=== PATIENT | male | born 1985 | race Caucasian/White ===

== ENCOUNTER 2019-11-07 00:26 | Emergency (ER) | payer SELFPAY ==
[~2019-11-07] VITALS: Ht 175.3 cm; Wt 61.2 kg
[2019-11-07 00:30] VITALS: BP 117/92
--- NOTE | 2019-11-07 01:42 | NUR ---
PATIENT AMB TO BED 2
--- NOTE | 2019-11-07 01:52 | NUR ---
ASSESSMENT COMPLETED WITH PATIENT LAYING IN BED, BED LOW AND LOCKED WITH SIDE RAIL UP. PATIENT AAO. FAMILY AT BEDSIDE. 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 STATES 6+ EPIDOSDE OF VOMITING AND 6+ DIARRHEA. STATES HE HAS NOT VOMITED OR HAD A BM IN THE LAST 30 MIN. PATIENT STATES EPIGASTRIC PAIN AND TENDERNESS. ABD SOFT. LUNGS CLEAR. NO COUGH OR FEVER REPORTED. NO PMH REPORTED.
[2019-11-07] MEDS ORDERED: ONDANSETRON 4 MG ODT PO STA (04:34)
[2019-11-07] MEDS ORDERED: DICYCLOMINE HCL LIQUID 20 MG, ALUMINUM HYD/MAG/SIMETHICONE 30 ML, LIDOCAINE VISCOUS 2% ... PO STA ×3 (04:34)
[2019-11-07] MEDS ORDERED: ALUMINUM HYD/MAG/SIMETHICONE 30 ML UDC ONE (04:42)
[2019-11-07] MEDS ORDERED: LIDOCAINE VISCOUS 2% 20 ML UDC ONE (04:42)
[2019-11-07] MEDS ORDERED: DICYCLOMINE HCL LIQUID 10 MG/5 ML UDC ONE (04:43)
[2019-11-07 05:50] VITALS: BP 121/89
--- NOTE | 2019-11-07 05:50 | NUR ---
PT DISCHARGED WITH PAPERWORK. EDUCATED PT REGARDING MEDICATIONS AND D/C INSTRUCTIONS. PT VERBALIZED UNDERSTANDING. TOLD PT TO FOLLOW UP WITH PCP AND WHEN TO RETURN TO ED. PT AT STABLE CONDITION. NO N/V NOTED. ALL QUESTIONS ANSWERED.
--- NOTE | 2019-11-07 05:54 | NUR ---
Note miriamone in EDM - 11/07/19 at 0555 by MEDROLAND PT SEEN AND ASSESSED BY DR LOPEZ. PT DISCHARGED WITH PAPERWORK. EDUCATED PT REGARDING MEDICATIONS AND D/C INSTRUCTIONS. PT VERBALIZED UNDERSTANDING. TOLD PT TO FOLLOW UP WITH PCP AND WHEN TO RETURN TO ED. PT AT STABLE CONDITION. ALL QUESTIONS ANSWERED.
== END 2019-11-07 05:50 | disposition home or self-care (01) ==
LOC: MED 00:26
DX: K21.9 Gastro-esophageal reflux disease without esophagitis (principal)
CPT/HCPCS: 99283; Q0162